=== PATIENT | female | born 1980 | race African-American/Black ===

== ENCOUNTER 2016-08-09 03:55 | Emergency (ER) | payer OTHER ==
[~2016-08-09] VITALS: Ht 167.6 cm; Wt 103.4 kg
[~2016-08-09 03:55] MED LIST: ADVAIR HFA 1112 UNIT IH; ALLERGY SHOTS; FISH OIL 1,001000 M2 PO; HARD NAILS2500 MCG PO; HYDROCODONE-AP1 EAC6 PO; LEXAPRO 10 MG T10 M1 PO; MEDROL DOSPAK21 TAB PO; NORCO 5-325 TA1 EACH PO; OMNARIS12.5 GM NS; ONDANSETRON HCL4 M2 PO; ORTHO TRI-CYCL1 EACH; PAXIL10 MG; PROBIOTIC1 EAC1 PO; SENNA S TABLET1 EACH PO; TANDEM DUAL AC106 MG PO; TRIPLE ANTIBIO1 EACH; ZOFRAN ODT4 MG PO; ZOFRAN4 MG PO; ZYRTEC; allergy shots
[2016-08-09] MEDS ORDERED: PREDNISONE50 MG PO (05:14)
== END 2016-08-09 06:07 | disposition home or self-care (01) ==
LOC: ER 03:55
DX: T78.49XA Other allergy, initial encounter (principal); J45.909 Unspecified asthma, uncomplicated; Z91.040 Latex allergy status; X58.XXXA Exposure to other specified factors, initial encounter

== ENCOUNTER 2017-11-01 22:00 | Emergency (ER) | payer OTHER ==
[~2017-11-01] VITALS: Ht 162.6 cm; Wt 102.1 kg
[~2017-11-01 22:00] MED LIST changes: +PREDNISONE50 MG PO
[2017-11-01] MEDS ORDERED: ADVAIR HFA 230M12 GM INH (22:18)
[2017-11-01] MEDS ORDERED: BIOTIN1 M1 PO (22:19)
[2017-11-01] MEDS ORDERED: TESSALON PERLE100 MG PO (22:30)
== END 2017-11-01 23:04 | disposition home or self-care (01) ==
LOC: ER 22:00
DX: J45.901 Unspecified asthma with (acute) exacerbation (principal); Z91.040 Latex allergy status

== ENCOUNTER 2018-03-13 05:27 | Emergency (ER) | payer OTHER ==
[~2018-03-13] VITALS: Ht 162.6 cm; Wt 102.1 kg
[~2018-03-13 05:27] MED LIST changes: +ADVAIR HFA 230M12 GM INH; +BIOTIN1 M1 PO; +TESSALON PERLE100 MG PO
[2018-03-13 05:49] LABS: URINE BILIRUBIN NEGATIVE (Negative); URINE BLOOD 1+ (Negative); URINE CLARITY CLEAR; URINE COLOR YELLOW; URINE GLUCOSE-RANDOM* NEGATIVE (Negative); URINE KETONES NEGATIVE (Negative); URINE LEUKOCYTES-REFLEX NEGATIVE (Negative); URINE NITRITE-REFLEX NEGATIVE (Negative); URINE PROTEIN (DIPSTICK) NEGATIVE (Negative); URINE SPECIFIC GRAVITY 1.025 (1.005-1.035); URINE UROBILINOGEN 0.2 E.U./dl (0.2-1.0)
[2018-03-13 05:54] LABS: ABSOLUTE NEUTROPHILS 2.5 thou/uL (1.4-8.2); EOSINOPHILS 0.8 % (0.0-3.0); HEMATOCRIT 39.2 % (37.0-47.0); HEMOGLOBIN 13.4 gm/dL (12.0-15.0); LYMPHOCYTES 41.9 % (24.0-44.0); MCH 27.9 pg (26.0-34.0); MCHC 34.1 g/dL (28.0-37.0); MCV 81.7 fL (80.0-100.0); MONOCYTES 5.5 % (1.0-8.0); PLATELET COUNT 310 thou/uL (150-400); POLYS 50.8 % (36.0-66.0); RDW 14.3 % (10.5-14.5); WBC 4.9 thou/uL (4.0-11.0)
[2018-03-13 06:04] LABS: CALCIUM 9.3 mg/dL (8.5-10.1); CREATININE 0.9 mg/dL (0.6-1.0)
[2018-03-13 06:10] LABS: ALBUMIN 3.8 g/dL (3.4-5.0); TOTAL BILIRUBIN 0.3 mg/dL (<0.1-1.0); TOTAL PROTEIN 7.8 g/dL (6.4-8.2)
[2018-03-13 06:31] LABS: CASTS None Seen /LPF (None Seen); SQUAMOUS 4-10 Moderate /LPF (0-3)
[2018-03-13 06:32] LABS: BACTERIA-REFLEX None Seen /HPF (None Seen); CRYSTALS None Seen /LPF (None Seen); URINE RBC 0-2 Rare /HPF (0-2); URINE WBC-REFLEX 0-5 Rare /HPF (0-5)
[2018-03-13] MEDS ORDERED: ZOFRAN ODT4 MG PO (06:41)
== END 2018-03-13 06:53 | disposition home or self-care (01) ==
LOC: ER 05:27
PROVIDERS: Emergency Medicine
DX: R11.2 Nausea with vomiting, unspecified (principal); J45.909 Unspecified asthma, uncomplicated; Z91.040 Latex allergy status